=== PATIENT | male | born 1940 | race Caucasian/White ===

== ENCOUNTER → 2016-04-14 | Day surgery (SDC) | payer OTHER ==
[~2016-04-14] VITALS: Ht 188 cm; Wt 134.3 kg
[~2016-04-14] MED LIST: *RESP: ALBUTEROL 2.5 MG/3 ML NEB (PRN) PERIprocedural Use ONLY NEB ONE; *morphine SULFATE 8 MG/ML PERIprocedure ONLY ONE; ASPI1TAB69 PO; ATOR10 PO; BALANCED SALT SOLN OPHT IRRIG 15 ML BTL ONE; BISA10R PR; DEXAMETHASONE SOD PHOS 4 MG/ML VIAL ONE; DO NOT ADM ANY ANTICOAGULANT DRUGS XX PRN; DOCU100C PO; DOCU1CAP39 PO; DORZ2SOL15 RIGHT EYE; ECASA PO; ENOX40P SQ; EPINEPHrine HCL (1:1000) 1 MG/ML VIAL ONE; GNP1000T4 PO; INSULIN HUMAN REGULAR 1,000 UNITS/10 ML VIAL SQ PRN; LACTATED RINGER'S 1000 ML IV SCH; LISI-360 PO; LISI10TA3 PO; METO25 PO; METOPROLOL TARTRATE 25 MG TAB PO PRN; MULT1TAB85 PO; NEOSTIGMINE 3 MG/3 ML SYR IV ONE; NORC7.5T PO; ONDANSETRON HCL 4 MG/2 ML VIAL IV PUSH ONE; PHENYLEPH/NS 1000 MCG/10 ML SYR IV ONE; PRIM50TA PO; PRIM50TA5 PO; PROPOFOL 200 MG/20 ML AMP IV ONE; SODIUM CHLORID 0.9% 500 ML IV SCH; STERILE WATER FOR INJ 20 ML VIAL ONE; TAB-TAB PO; TERA2CAP3 PO; TEST200I13 IM; THERM PO; TOBRAMYCIN/DEXAMETHASONE OPTH OINT 3.5 GM TUBE ONE; TRAZ50TA12 PO; TRIAMCINOLONE ACETONIDE/PF 40 MG/ML OPTH VIAL ONE; VANCOMYCIN HCL 1000 MG VIAL ONE; VITA10004 PO; VITA200017 PO; VITA20003 PO; WALKER ROLLING; Z.0.CPM; ceFAZolin INJ 1,000 MG VIAL ONE; ePHEDrine/NS 25 MG/5 ML SYR IV ONE
[2016-04-14 10:02] VITALS: BP 160/78; PULSE 72; RESP 18; TEMP 97.9; O2SAT 94
[2016-04-14 10:35] LABS: AUTOMATED NEUTROPHIL # 4.8 TH/MM3 (1.8-7.7); BASOPHIL % 0.6 % (0.0-2.0); EOSINOPHIL # 0.1 TH/MM3 (0-0.4); EOSINOPHIL % 2.1 % (0.0-4.0); HEMATOCRIT 43.4 % (39.0-51.0); HEMO FLAGS DIFF FINAL; LYMPH % 20.3 % (9.0-44.0); LYMPHOCYTE # 1.4 TH/MM3 (1.0-4.8); MEAN CELL VOLUME 95.9 FL (80.0-100.0); MEAN CORPUSCULAR HEMOGLOBIN 32.8 PG (27.0-34.0); MEAN CORPUSCULAR HGB CONC 34.2 % (32.0-36.0); MONO % 7.5 % (0.0-8.0); NEUT % 69.5 % (16.0-70.0); PLATELET COUNT 186 TH/MM3 (150-450); RED BLOOD COUNT 4.53 MIL/MM3 (4.50-5.90); RED CELL DISTRIBUTION WIDTH 13.7 % (11.6-17.2); WHITE BLOOD COUNT 6.9 TH/MM3 (4.0-11.0)
[2016-04-14] MEDS: ATROPINE SULFATE 1% OPHT SOLN 5 ML BTL RIGHT EYE SCH ×2 (10:40→10:55)
[2016-04-14] MEDS: TROPICAMIDE 1% OPTH SOLN 2 ML BTL RIGHT EYE SCH ×2 (10:40→10:55)
[2016-04-14] MEDS: CYCLOPENTOLATE HCL 1% OPHT SOLN 2 ML BTL RIGHT EYE SCH ×2 (10:40→10:55)
[2016-04-14] MEDS: PHENYLEPHRINE HCL 2.5% OPTH SOLN 2 ML BTL RIGHT EYE SCH ×2 (10:40→10:55)
[2016-04-14 13:45] VITALS: BP 133/61; PULSE 78; RESP 18; TEMP 98.5; O2SAT 92
--- NOTE | 2016-04-14 14:32 | MP ---
cc: SUSAN GUERIN M.D. DATE OF SURGERY: 04/14/2016. PREOPERATIVE DIAGNOSIS Exposed scleral buckle with probable infection, right eye. POSTOPERATIVE DIAGNOSIS Exposed scleral buckle with probable infection, right eye. PROCEDURE Removal of scleral buckle, repair of conjunctival wound and injection of antibiotics, right eye. SURGEON Dr. Susan Guerin. ANESTHESIA General endotracheal anesthesia. HISTORY OF PRESENT ILLNESS Mr. 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 He presented on 04/04/2016 with discomfort and discharge out of his right eye for several weeks. He was found to have exposure of the scleral buckle superiorly from approximately 10 to 1:30 o'clock. The band had eroded through the conjunctiva and was laying on top of his superior cornea. The sleeve was visible at about the 1 o'clock position. There was exudative liquid and pus around the buckle and the conjunctiva was injected. I suggested the scleral buckle be removed and cultured and the patient agreed. Informed consent was obtained. He was brought to [facility] operating room one and placed on the operating table. Appropriate anesthesia monitoring devices were applied and he was placed under general anesthesia using endotracheal tube because of his large size. The right eye was identified as the operative site and prepped and draped in the usual sterile fashion. A lid speculum was placed. The buckle was grasped at the sleeve and then cut at 12 o'clock. It was easily slid out from around the orbit. The wound was irrigated with vancomycin 50 mg/cc and then the conjunctiva was closed with interrupted 7-0 Chromic sutures. The buckle was sent for culture. Subconjunctival injections of Ancef 125 mg in 0.5 cc and vancomycin 25 mg in 0.5 cc were given at separate sites. The lid speculum was removed and the patient was undraped. TobraDex ointment was placed on the cornea and the right eye was patched and shielded. The patient was extubated in the room and returned to recovery in good condition. He will be started on postoperative antibiotic drops tomorrow after the patch is removed at his first day postop visit. MD GUSTAVO Coto/TLL /12:27 PM /1:58 PM
== END | disposition home or self-care (01) ==
LOC: HSDC 08:40
PROVIDERS: ATTEND Ophthalmology
DX: H59.89 Other postprocedural complications and disorders of eye and adnexa, not elsewhere classified (principal)
CPT/HCPCS: 00145; 67115; 67121; 85025; 87070; 87102; 87205; 87206; J0690; J2270; J2370; J2405; J2710; J3010; J3370; J7120; J7613; 94664; J0171; J1100; J3300